=== PATIENT | female | born 1980 | race Caucasian/White ===

== ENCOUNTER 2018-11-28 18:19 | Inpatient (IN) ==
[2018-11-28 18:44] LABS: Bilirubin,Urine Small (Negative); Blood,Urine Moderate (Negative); Clarity,Urine Clear (Clear); Color,Urine Yellow (Yellow); Glucose,Urine (UA) Normal (Normal); Ketones,Urine Negative (Negative); Leukocyte Esterase,Urine Negative (Negative); Nitrite,Urine Negative (Negative); PH,Urine 6.5 pH Units (5.0-8.0); Protein,Urine Trace mg/dL (Neg-Trace)
--- NOTE | 2018-11-28 19:09 | Emergency Department Note ---
Disposition Clinical Impression: Multifocal pneumonia Disposition: Admitted As Inpatient Condition: Fair Time of Disposition: 22:11 General Adult HPI - General Chief complaint: ED Headache Stated complaint: HEADACHE, FEVER Time Seen by Provider: 11/28/18 19:07 Source: patient Mode of arrival: EMS Limitations: no limitations Nursing Notes Reviewed: Yes Vital Signs Reviewed: Yes - History of Present Illness HPI Narrative: Patient presents to the ED via EMS complaining of headache and fever. Headache started 3 days ago and fever started today. Patient states she was seen in the ED in [place] 3 days ago for chest pain. States they gave her nitroglycerin which triggered the headache and it has not gone away since then. Chest pain was resolved with nitroglycerin and she had a negative cardiac workup but states they wanted to keep her overnight for observation but she signed out AMA. Chest pain has never returned. Her headache is generalized in location, stabbing in nature and she rates it a 10 out of 10. She reports blurry vision over the past 2 days as well as some photophobia and phonophobia. No neck pain or stiffness. She does have a history of migraines but states today's pain was more intense and feels different. She denies any numbness, tingling or weakness in her arms or her legs although she feels generally weak. She reports nausea but no vomiting. No abdominal pain, diarrhea or constipation. No chest pain or shortness of breath. No urinary symptoms. No rash. No recent travel or sick contacts. Pain Scale: 10 - Related Data Home Medications Medication Instructions Recorded Confirmed Divalproex (12 HR) [Depakote (12 500 mg PO HS 11/28/18 11/28/18 HR)] Escitalopram [Lexapro] 20 mg PO DAILY 11/28/18 11/28/18 Fenofibrate 50 mg PO DAILY 11/28/18 11/28/18 Allergies Allergy/AdvReac Type Severity Reaction Status Date / Time No Known Allergies Allergy Verified 11/28/18 18:26 Constitutional: Reports: fever. Denies: chills, weakness, weight change Eyes: Denies: eye pain, eye discharge, vision change ENT ED: Denies: ear pain, throat pain, dental pain, hearing loss, epistaxis, congestion, dysphagia Cardiovascular: Denies: chest pain, palpitations, dyspnea on exertion, edema, syncope Respiratory: Denies: cough, dyspnea, wheezes, hemoptysis, stridor Gastrointestinal: Reports: nausea. Denies: abdominal pain, vomiting, diarrhea, constipation, hematemesis, melena, hematochezia Genitourinary: Denies: dysuria, frequency, hematuria, discharge Musculoskeletal: Reports: as per HPI Integumentary: Denies: rash, abrasion, lesions Neurological: Reports: headache. Denies: weakness, numbness, paresthesias, confusion, abnormal gait, vertigo Psychiatric: Denies: anxiety, depression, suicidal thoughts, homicidal thoughts, auditory hallucinations, visual hallucinations Endocrine: Denies: fatigue Hematological/Lymphatic: Denies: easy bleeding, easy bruising Allergic/Immunologic: Denies: facial swelling, urticaria Past Medical History - Past Medical History Medical history: Reports: other Psychiatric history: Reports: anxiety, depression - Social History Smoking Status: Current every day smoker Alcohol use: Reports: none Drug use: Reports: none Physical Exam - General Limitations: no limitations General appearance: alert, in no apparent distress - Head Head exam: atraumatic, normocephalic, normal inspection - Eye Eye exam: Present: normal appearance, PERRL, EOMI - ENT ENT exam: normal exam, normal oropharynx, mucous membranes moist - Neck Neck exam: Present: normal inspection, full ROM, trachea midline. Absent: meningismus - Chest Chest inspection: Present: normal inspection, symmetric chest wall rise - Respiratory Respiratory exam: Present: normal lung sounds bilaterally - Cardiovascular Cardiovascular exam: Present: regular rate, normal rhythm, normal heart sounds - Abdominal Exam Abdominal exam: Present: soft, Non-Tender. Absent: tenderness, distention, guarding, rebound, rigidity - Extremities Exam Extremities exam: Present: normal inspection, full ROM. Absent: tenderness, pedal edema - Back Exam Back exam: Present: normal inspection, full ROM. Absent: tenderness - Neurological Exam Neurological exam: Present: alert, oriented X3, CN II-XII intact. Absent: motor sensory deficit - Expanded Neurological Exam Speech: Present: fluid speech Cerebellar function: normal gait Motor strength - LUE: 5/5 Motor strength - RUE: 5/5 Motor strength - LLE: 5/5 Motor strength - RLE: 5/5 Coma Scale Eye Opening: Spontaneous Coma Scale Motor Response: Obeys Commands Coma Scale Verbal Response: Oriented Coma Scale Total: 15 - Psychiatric Psychiatric exam: Present: normal affect, normal mood - Skin Skin exam: Present: warm, dry, intact, normal color Course Course Narrative: Patient presents to the ED complaining of 3 days of headache with some migrainous features as well as a fever and generalized weakness. On arrival she is febrile at 103 and subtly tachycardia at 118. Physical exam is unremarkable including detailed neurologic exam. Given the change in nature of her headache will obtain CT scan of the head while also treating her with a migraine cocktail in obtaining lab work for further evaluation of the source of her fever. - Reevaluation(s) Reevaluation #1: Fever responded to Tylenol. Headache resolved with medication in the ED. Laboratory studies did show significant leukocytosis with left shift but lactic acid is normal. Head CT was normal as well but chest x-ray showed multifocal pneumonia. Discussed with patient recommendation for admission given the fever and high white count and she is agreeable. Will start IV antibiotics in the ED. I spoke to the hospitalist on-call, Dr. Drake, who has agreed to admit the p atient. Vital Signs Temperature 103.0 F H 11/28/18 18:21 Pulse Rate 118 11/28/18 18:21 Respiratory Rate 18 11/28/18 18:21 Blood Pressure 105/63 11/28/18 18:21 O2 Sat by Pulse Oximetry 95 11/28/18 18:21 Temperature 97.8 F 11/28/18 23:26 Pulse Rate 82 11/28/18 23:26 Respiratory Rate 16 11/28/18 23:26 Blood Pressure 102/66 11/28/18 23:26 O2 Sat by Pulse Oximetry 97 11/28/18 23:56 Oxygen Delivery Oxygen Delivery Room Air Medical Decision Making - Medical Records Medical records reviewed: Yes I reviewed the patient's medical records. - Lab Data Lab results reviewed: Yes I reviewed the patient's lab results. Result diagrams: 11/28/18 20:02 11/28/18 20:02 Lab Results 11/28/18 11/28/18 11/28/18 Range/Units 18:40 20:02 20:02 WBC 23.6 H (4.3-11.1) K/mcL RBC 3.55 L (3.82-4.97) M/mcL Hgb 10.9 L (11.5-15.4) g/dL Hct 32.3 L (35.3-44.9) % MCV 91.0 (83.0-100.0) fL MCH 30.7 (28.0-33.3) pg MCHC 33.7 (31.6-35.5) g/dL RDW 13.8 (11.5-14.5) % Plt Count 466 H (140-400) K/mcL MPV 9.0 L (9.4-12.4) fL Immature Gran % 0.8 (0-4) % Seg Neutrophils % 77.5 % Lymphocytes % 11.4 % Monocytes % 10.1 % Eosinophils % 0.0 % Basophils % 0.2 % Neutrophils # 18.3 H (1.6-8.9) K/mcL Lymphocytes # 2.7 (0.6-4.6) K/mcL Monocytes # 2.4 H (0.0-1.3) K/mcL Eosinophils # 0.0 (0.0-0.6) K/mcL Basophils # 0.1 (0.0-0.2) K/mcL Sodium 133 L (136-145) mEq/L Potassium 3.6 (3.5-5.1) mEq/L Chloride 102 (98-107) mEq/L Carbon Dioxide 20 L (23-29) mEq/L BUN 15 (6-20) mg/dL Creatinine 1.11 (0.60-1.20) mg/dL Est GFR ( Amer) > 60 (> 60) Est GFR (Non-Af Amer) 54 L (> 60) BUN/Creatinine Ratio 14 (6-26) Glucose 115 H (70-105) mg/dL Calculated Osmolality 278 L (280-300) Lactic Acid (0.5-2.2) mmol/L Calcium 8.9 (8.6-10.3) mg/dL Urine Color Yellow (Yellow) Urine Clarity Clear (Clear) Urine pH 6.5 (5.0-8.0) pH Units Ur Specific Patterson 1.020 (1.010-1.025) Urine Protein Trace (Neg-Trace) mg/dL Urine Glucose (UA) Normal (Normal) mg/dL Urine Ketones Negative (Negative) mg/dL Urine Blood Moderate H (Negative) Urine Nitrite Negative (Negative) Urine Bilirubin Small H (Negative) Urine Urobilinogen 4.0 H (Normal) mg/dL Ur Leukocyte Esterase Negative (Negative) Urine Microscopic RBC 5-15 H (0-3) per hpf Urine Microscopic WBC 0-3 (0-3) per hpf Ur Squamous Epith Cells Few (None-Few) per lpf Urine Bacteria Few (None-Few) per hpf Urine Mucus Few (Few) 11/28/18 Range/Units 20:02 WBC (4.3-11.1) K/mcL RBC (3.82-4.97) M/mcL Hgb (11.5-15.4) g/dL Hct (35.3-44.9) % MCV (83.0-100.0) fL MCH (28.0-33.3) pg MCHC (31.6-35.5) g/dL RDW (11.5-14.5) % Plt Count (140-400) K/mcL MPV (9.4-12.4) fL Immature Gran % (0-4) % Seg Neutrophils % % Lymphocytes % % Monocytes % % Eosinophils % % Basophils % % Neutrophils # (1.6-8.9) K/mcL Lymphocytes # (0.6-4.6) K/mcL Monocytes # (0.0-1.3) K/mcL Eosinophils # (0.0-0.6) K/mcL Basophils # (0.0-0.2) K/mcL Sodium (136-145) mEq/L Potassium (3.5-5.1) mEq/L Chloride (98-107) mEq/L Carbon Dioxide (23-29) mEq/L BUN (6-20) mg/dL Creatinine (0.60-1.20) mg/dL Est GFR ( Amer) (> 60) Est GFR (Non-Af Amer) (> 60) BUN/Creatinine Ratio (6-26) Glucose (70-105) mg/dL Calculated Osmolality (280-300) Lactic Acid 0.8 (0.5-2.2) mmol/L Calcium (8.6-10.3) mg/dL Urine Color (Yellow) Urine Clarity (Clear) Urine pH (5.0-8.0) pH Units Ur Specific Patterson (1.010-1.025) Urine Protein (Neg-Trace) mg/dL Urine Glucose (UA) (Normal) mg/dL Urine Ketones (Negative) mg/dL Urine Blood (Negative) Urine Nitrite (Negative) Urine Bilirubin (Negative) Urine Urobilinogen (Normal) mg/dL Ur Leukocyte Esterase (Negative) Urine Microscopic RBC (0-3) per hpf Urine Microscopic WBC (0-3) per hpf Ur Squamous Epith Cells (None-Few) per lpf Urine Bacteria (None-Few) per hpf Urine Mucus (Few) - Radiology Data Radiology results reviewed: Yes I reviewed the patient's radiology results. ITS Impressions Chest X-Ray 11/28/18 19:45 IMPRESSION: Multifocal consolidation, most compatible with multifocal pneumonia. It is essential that this be followed to resolution to ensure that there is no underlying neoplasm. D/ / Francesco Vera MD / Francesco Vera MD Interpreting Provider: Francesco Vera MD Head CT 11/28/18 19:45 IMPRESSION: No acute intracranial abnormality. D/ / Muriel Mohamud MD / Muriel Mohamud MD Interpreting Provider: Murile Mohamud MD
[2018-11-28 19:30] LABS: Bacteria,Urine Few per hpf (None-Few); Mucus,Urine Few (Few); Squamous Epithelial Cell,Urine Few per lpf (None-Few); WBC,Urine 0-3 per hpf (0-3)
[2018-11-28] MEDS ORDERED: *HR* Promethazine 25 MG/ML VIAL IVP ONE (19:44)
[2018-11-28] MEDS ORDERED: 0.9 % Sodium Chloride 500 ML IVC ONE (19:44)
[2018-11-28] MEDS ORDERED: Ketorolac 60 MG/2 ML VIAL IM ONE (19:44)
[2018-11-28 20:11] LABS: Basophils # 0.1 K/mcL (0.0-0.2); Basophils % 0.2 %; Hematocrit 32.3 % (35.3-44.9); Hemoglobin 10.9 g/dL (11.5-15.4); Immature Granulocytes % 0.8 % (0-4); Lymphocytes # 2.7 K/mcL (0.6-4.6); Lymphocytes % 11.4 %; Mean Corpuscular HGB Conc 33.7 g/dL (31.6-35.5); Mean Corpuscular Hemoglobin 30.7 pg (28.0-33.3); Monocytes # 2.4 K/mcL (0.0-1.3); Monocytes % 10.1 %; Neutrophils # 18.3 K/mcL (1.6-8.9); Platelet Count 466 K/mcL (140-400); Red Blood Count 3.55 M/mcL (3.82-4.97); Red Cell Distribution Width 13.8 % (11.5-14.5); Segmented Neutrophils % 77.5 %; White Blood Count 23.6 K/mcL (4.3-11.1)
[2018-11-28 20:25] LABS: BUN/Creatinine Ratio 14 (6-26); Blood Urea Nitrogen 15 mg/dL (6-20); Calcium 8.9 mg/dL (8.6-10.3); Carbon Dioxide 20 mEq/L (23-29); Chloride 102 mEq/L (98-107); Glucose 115 mg/dL (70-105); Osmolality,Calculated 278 (280-300); Potassium 3.6 mEq/L (3.5-5.1); Sodium 133 mEq/L (136-145); eGFR For African Americans > 60 (> 60); eGFR For Non-African Americans 54 (> 60)
[2018-11-28] MEDS ORDERED: levoFLOXacin 750 MG/150 ML 750 MG/150 ML BAG IVPB ONE (21:43)
[2018-11-28] MEDS ORDERED: Naloxone 0.4 MG/ML INJ IVP PRN ×2 (22:08→23:22)
[2018-11-29] MEDS ORDERED: Ondansetron 4 MG/2 ML VIAL IVP SCH (04:00)
[2018-11-29] MEDS: Ibuprofen 600 MG TABLET PO PRN ×2 (05:02→20:02)
[2018-11-29 06:03] LABS: Basophils # 0.1 K/mcL (0.0-0.2); Basophils % 0.5 %; Hematocrit 36.1 % (35.3-44.9); Hemoglobin 10.9 g/dL (11.5-15.4); Immature Granulocytes % 0.6 % (0-4); Lymphocytes # 1.9 K/mcL (0.6-4.6); Lymphocytes % 9.1 %; Mean Corpuscular HGB Conc 30.2 g/dL (31.6-35.5); Mean Corpuscular Hemoglobin 30.4 pg (28.0-33.3); Mean Corpuscular Volume 100.8 fL (83.0-100.0); Mean Platelet Volume 9.6 fL (9.4-12.4); Monocytes # 2.1 K/mcL (0.0-1.3); Monocytes % 9.9 %; Neutrophils # 16.8 K/mcL (1.6-8.9); Platelet Count 456 K/mcL (140-400); Red Blood Count 3.58 M/mcL (3.82-4.97); Red Cell Distribution Width 14.1 % (11.5-14.5); Segmented Neutrophils % 79.9 %
[2018-11-29] MEDS: traMADol 50 MG TABLET PO PRN ×2 (08:42→15:51)
[2018-11-29] MEDS: Fenofibrate 54 MG TABLET PO SCH (08:43)
--- NOTE | 2018-11-29 09:43 | Internal Med History&Physical ---
Date of Encounter: 11/29/18 Time of Encounter: 09:10 Assessment and Plan (1) Multifocal pneumonia Current visit: Yes Status: Acute She was given IV Levaquin in emergency room. She will be ordered IV Rocephin and Zithromax with lactobacillus. (2) Headache Current visit: Yes Status: Acute Tramadol and Ibuprofen have been ordered for prn use. Qualifiers: Headache type: unspecified Headache chronicity pattern: acute headache Intractability: intractable Qualified Code(s): R51 - Headache (3) Hypothyroidism Current visit: Yes Status: Chronic TSH will be ordered. Qualifiers: Hypothyroidism type: unspecified Qualified Code(s): E03.9 - Hypothyroidism, unspecified (4) Hyperlipidemia Current visit: Yes Status: Chronic Continue fenofibrate. Qualifiers: Hyperlipidemia type: unspecified Qualified Code(s): E78.5 - Hyperlipidemia, unspecified (5) Anemia Current visit: Yes Status: Acute Anemia testing will be ordered. Qualifiers: Anemia type: unspecified type Qualified Code(s): D64.9 - Anemia, unspecified (6) Azotemia Current visit: Yes Status: Acute Duration unknown. IV fluids will be given and renal indices will be monitored. (7) Thrombocytosis Current visit: Yes Status: Acute Duration unknown. Anemia testing will be done. (8) Hematuria Current visit: Yes Status: Acute Duration unknown. Urine culture will be ordered. Qualifiers: Hematuria type: unspecified type Qualified Code(s): R31.9 - Hematuria, unspecified Internal Medicine - H&P: HPI Chief complaint: Headache Admitted From: Emergency Dept Plans for Post Hospital Care: Home History of present illness: Ms. Kim is a 38 year old female who came to emergency room stating she had onset of headache November 26 after receiving a sublingual Nitrostat in [place] emergency room for complaints of chest pain. She reports the chest pain re solved but the headache has persisted. She denies vision changes neck stiffness cough dyspnea or vision loss. She came to emergency room and was found to have multifocal pneumonia, anemia, and azotemia on workup. She was admitted to [facility] floor for ongoing care needs. She reports history of migraine headaches since age 25 but states the present headache does not have her usual migraine characteristics. She denies strokes seizures or TIAs. Respiratory history is significant for having smoked since age 16 a total of 13 years. She reports never exceeding one half pack per day. She denies chronic lung disease and does not use home oxygen. She had negative NHI workup in the past. Past Med Surg Social Fam HX - Past Medical History Medical history: other Additional medical history: PITUTARY TUMOR. "RESTRICTED BLOOD FLOW TO HEART" Psychiatric history: anxiety, bipolar, depression - Past Surgical History Surgical History: cholecystectomy, hysterectomy - Social History Smoking Status: Current every day smoker Packs per day: 0.5 Smokeless Tobacco Status: No Alcohol use: none Drug use: none - Family History Mother Living Status: Age at : 42 Hx Family Cancer: Yes (cervical) Internal Medicine - H&P: Meds Divalproex (12 HR) [Depakote (12 HR)] 500 mg PO HS 11/28/18 [History] Escitalopram [Lexapro] 20 mg PO DAILY 11/28/18 [History] Fenofibrate 50 mg PO DAILY 11/28/18 [History] Allergy/AdvReac Type Severity Reaction Status Date / Time No Known Allergies Allergy Verified 11/28/18 18:26 All Systems PM: A 10-system review of systems was performed and is negative for pertinent findings except as documented above in the HPI. Review of systems: Gen.: She states her weight has been stable for several months Cardiovascular: She denies hypertension ND heart failure angina DVT or pulmonary embolus. She reports she had negative heart cath December 2017 at [facility]. She was placed on amlodipine for chest pain. She does not get angina or anginal equivalents on exertion. Respiratory: As per history of present illness GI: She has had cholecystectomy. She denies disorders of her liver or exocrine pancreas. : She denies hematuria dysuria or kidney stones Neurologic: As per history of present illness Endocrine: She has history of hypothyroidism and hyperlipidemia. She denies known internal malignancies. Hematology/oncology: She was unaware she had anemia on labs in emergency room. She denies history of anemia, blood disorders, or internal malignancies Psychiatric: She has anxiety and bipolar disorder [place] skeletal: She denies arthritis gout or other bone joint or muscle disorders. - Constitutional Vitals: Temp Pulse Resp BP Pulse Ox 99.5 F 91 18 99/66 96 11/29/18 06:45 11/29/18 06:45 11/29/18 06:45 11/29/18 06:45 11/29/18 06:45 Exam: Gen.: She is a well-developed well-nourished female resting comfortably in bed who appears in no acute distress HEENT: Head is atraumatic and normocephalic. There is mild discomfort on palpating the right temporal area. No enlarged arteries are palpated. Eyes: EOMI. There is no scleral icterus. Mouth: Mucosa is moist. Neck: Supple and nontender. There is no thyromegaly or adenopathy noted. Heart: Regular without murmurs gallops or ectopics Lungs: No wheezes or crackles are heard. Abdomen: Soft and nontender. No masses or guarding are noted. Extremities: There is no cyanosis edema or clubbing noted. Dorsalis pedis and posterior tibial pulses are 1-2 over 2 bilaterally. Neurologic: Mental status: She is talkative and a good historian. Cranial nerves: Smile is symmetric. Forehead wrinkles bilaterally. Tongue protrudes midline. EOMI. Motor: No focal motor deficits to gross exam. Skin: Warm and dry Internal Med - H&P Results - Labs CBC & Chem 7: 11/29/18 05:11 11/28/18 20:02 Labs: Short CBC 11/28/18 11/29/18 Range/Units 20:02 05:11 WBC 23.6 H 21.0 H (4.3-11.1) K/mcL Hgb 10.9 L 10.9 L (11.5-15.4) g/dL Hct 32.3 L 36.1 (35.3-44.9) % Plt Count 466 H 456 H (140-400) K/mcL Neutrophils # 18.3 H 16.8 H (1.6-8.9) K/mcL BMP 11/28/18 20:02 Sodium 133 L Potassium 3.6 Chloride 102 Carbon Dioxide 20 L BUN 15 Creatinine 1.11 Glucose 115 H Calcium 8.9 Urine 11/28/18 Range/Units 18:40 Urine Color Yellow (Yellow) Urine Clarity Clear (Clear) Urine pH 6.5 (5.0-8.0) pH Units Ur Specific [place] 1.020 (1.010-1.025) Urine Protein Trace (Neg-Trace) mg/dL Urine Glucose (UA) Normal (Normal) mg/dL - Impressions ITS Impressions Chest X-Ray 11/28/18 19:45 IMPRESSION: Multifocal consolidation, most compatible with multifocal pneumonia. It is essential that this be followed to resolution to ensure that there is no underlying neoplasm. D/ / Francesco Vera MD / Francesco Vera MD Interpreting Provider: Francesco Vera MD Head CT 11/28/18 19:45 IMPRESSION: No acute intracranial abnormality. D/ / Muriel Mohamud MD / Muriel Mohamud MD Interpreting Provider: Muriel Mohamud MD - VTE Reasons for not Prescribing Prophylaxis: Treatment not Indicated - Low risk for VTE
[2018-11-29 11:01] LABS: Thyroid Stimulating Hormone 3.654 mcIU/mL (0.340-5.600)
[2018-11-29] MEDS: cefTRIAXone 1,000 MG in Water for inj. (sterile) 10 ML IVP SCH (11:29)
[2018-11-29] MEDS: *HR* Enoxaparin 40 MG/0.4 ML SYRINGE SQ SCH (11:30)
[2018-11-29] MEDS: Azithromycin 500 MG in D5% in Water 250 ML IVPB SCH (11:30)
[2018-11-29] MEDS: 0.45 % Sodium Chloride w/KCl 20 MEQ/1,000 ML MLS IVC SCH (11:31)
[2018-11-29] MEDS: Ondansetron 4 MG/2 ML VIAL IVP PRN ×2 (12:25→15:52)
[2018-11-29] MEDS: Divalproex (12 HR) 250 MG TABLET PO SCH (20:03)
[2018-11-29] MEDS: Lactobacillus 1 EACH CAP.SPRINK PO SCH (20:03)
[2018-11-29 20:47] LABS: Iron < 10 mcg/dL (50-170); Transferrin 248 mg/dL (203-362)
[2018-11-29 20:52] LABS: Procalcitonin 0.27 ng/mL (0.00-0.15)
[2018-11-29 21:04] LABS: Ferritin 325 ng/mL (10-120)
[2018-11-29 21:09] LABS: Folate 10.5 ng/mL (3.0-16.0)
[2018-11-30] MEDS: 0.45 % Sodium Chloride w/KCl 20 MEQ/1,000 ML MLS IVC SCH ×2 (01:17→13:47)
[2018-11-30 06:23] LABS: Basophils % 0.4 %; Eosinophils # 0.2 K/mcL (0.0-0.6); Hematocrit 31.3 % (35.3-44.9); Hemoglobin 10.2 g/dL (11.5-15.4); Immature Granulocytes % 0.4 % (0-4); Lymphocytes # 3.2 K/mcL (0.6-4.6); Mean Corpuscular HGB Conc 32.6 g/dL (31.6-35.5); Mean Corpuscular Hemoglobin 30.4 pg (28.0-33.3); Mean Corpuscular Volume 93.4 fL (83.0-100.0); Mean Platelet Volume 9.9 fL (9.4-12.4); Monocytes # 1.2 K/mcL (0.0-1.3); Monocytes % 10.6 %; Neutrophils # 6.7 K/mcL (1.6-8.9); Platelet Count 424 K/mcL (140-400); Red Blood Count 3.35 M/mcL (3.82-4.97); Red Cell Distribution Width 13.9 % (11.5-14.5); Segmented Neutrophils % 58.6 %; White Blood Count 11.4 K/mcL (4.3-11.1)
[2018-11-30 06:27] LABS: Basophils # 0.1 K/mcL (0.0-0.2)
[2018-11-30 06:40] LABS: Alanine Aminotransferase 77 Units/L (7-52); Albumin 3.3 g/dL (3.5-5.7); Albumin/Globulin Ratio 1.3 (1.1-2.2); Alkaline Phosphatase 35 Units/L (34-104); Aspartate Amino Transferase 72 Units/L (13-39); BUN/Creatinine Ratio 17 (6-26); Bilirubin,Total 0.2 mg/dL (0.3-1.0); Blood Urea Nitrogen 18 mg/dL (6-20); Calcium 8.6 mg/dL (8.6-10.3); Carbon Dioxide 26 mEq/L (23-29); Chloride 108 mEq/L (98-107); Globulin 2.6 g/dL (2.4-3.5); Glucose 104 mg/dL (70-105); Osmolality,Calculated 290 (280-300); Potassium 4.1 mEq/L (3.5-5.1); Sodium 139 mEq/L (136-145); Total Protein 5.9 g/dL (6.4-8.9); eGFR For African Americans > 60 (> 60); eGFR For Non-African Americans 59 (> 60)
[2018-11-30] MEDS: *HR* Enoxaparin 40 MG/0.4 ML SYRINGE SQ SCH (06:42)
[2018-11-30] MEDS: traMADol 50 MG TABLET PO PRN (06:46)
[2018-11-30] MEDS: Fenofibrate 54 MG TABLET PO SCH (08:40)
[2018-11-30] MEDS: Lactobacillus 1 EACH CAP.SPRINK PO SCH ×2 (08:40→20:03)
--- NOTE | 2018-11-30 09:38 | Internal Med Progress Note ---
Date of Encounter: 11/30/18 Time of Encounter: 09:31 - Assessment and plan (1) Multifocal pneumonia Current Visit: Yes Status: Acute Assessment and plan: November 30. She has remained afebrile overnight. WBC has decreased to 11.4 with resolution of left shift. Pro-calcitonin slightly elevated at 0.27. Continue IV Rocephin and Zithromax with lactobacillus. (2) Headache Current Visit: Yes Status: Acute Assessment and plan: November 30. Continue tramadol and ibuprofen as needed. Qualifiers: Headache type: unspecified Headache chronicity pattern: acute headache Intractability: intractable Qualified Code(s): R51 - Headache (3) Hypothyroidism Current Visit: Yes Status: Chronic Assessment and plan: November 30. TSH was normal at 3.654. Qualifiers: Hypothyroidism type: unspecified Qualified Code(s): E03.9 - Hypothyroidism, unspecified (4) Hyperlipidemia Current Visit: Yes Status: Chronic Assessment and plan: November 30. Continue fenofibrate. Qualifiers: Hyperlipidemia type: unspecified Qualified Code(s): E78.5 - Hyperlipidemia, unspecified (5) Anemia Current Visit: Yes Status: Acute Assessment and plan: November 30. Hemoglobin slightly decreased to 10.2. Anemia testing showed iron < 10, transferrin 248, ferritin 325, B12 245, and folate 10.5. She will receive a B12 injection and start oral B12 supplement. She will also start ferrous sulfate with ascorbic acid. Qualifiers: Anemia type: unspecified type Qualified Code(s): D64.9 - Anemia, unspec ified (6) Azotemia Current Visit: Yes Status: Acute Assessment and plan: November 30. BUN and creatinine 18 and 1.03 respectively today with estimated GFR 59. Continue IV fluids. Recheck labs in a.m. (7) Thrombocytosis Current Visit: Yes Status: Acute Assessment and plan: November 30. Minimally changed at 424,000. Start ferrous sulfate in a.m. (8) Hematuria Current Visit: Yes Status: Acute Assessment and plan: November 30. Urine culture report pending. Qualifiers: Hematuria type: unspecified type Qualified Code(s): R31.9 - Hematuria, unspecified (9) Elevated transaminase level Current Visit: Yes Status: Acute Assessment and plan: November 30. AST and ALT are 72 and 77 respectively. Alkaline phosphatase normal at 35. Recheck labs in a.m. - Subjective Interval history: November 30. She has no new complaints and feels better. - Constitutional Vitals: Temp Pulse Resp BP Pulse Ox 97.7 F 73 14 108/73 97 11/30/18 06:51 11/30/18 06:51 11/30/18 07:57 11/30/18 06:51 11/30/18 07:57 Exam: She is resting comfortably in bed and appears in no acute distress. Her affect is bright and cheerful. She appears in less pain than yesterday. I reviewed her medications and lab results. Internal Medicine: Result - Labs CBC & Chem 7: 11/30/18 06:00 11/30/18 06:00 Labs: Short CBC 11/30/18 Range/Units 06:00 WBC 11.4 H (4.3-11.1) K/mcL Hgb 10.2 L (11.5-15.4) g/dL Hct 31.3 L (35.3-44.9) % Plt Count 424 H (140-400) K/mcL Neutrophils # 6.7 (1.6-8.9) K/mcL BMP 11/30/18 06:00 Sodium 139 Potassium 4.1 Chloride 108 H Carbon Dioxide 26 BUN 18 Creatinine 1.03 Glucose 104 Calcium 8.6 Liver Function 11/30/18 Range/Units 06:00 Total Bilirubin 0.2 L (0.3-1.0) mg/dL AST 72 H (13-39) Units/L ALT 77 H (7-52) Units/L Alkaline Phosphatase 35 (34-104) Units/L Albumin 3.3 L (3.5-5.7) g/dL - VTE Reasons for not Prescribing Prophylaxis: Treatment not Indicated - Low risk for VTE Consult Discharge Plan - Plan Referrals: Linette Rose MD [Primary Care Provider] - 1 week
[2018-11-30] MEDS ORDERED: Cyanocobalamin (B-12) 1,000 MCG/ML VIAL IM ONE (09:44)
[2018-11-30] MEDS: cefTRIAXone 1,000 MG in Water for inj. (sterile) 10 ML IVP SCH (10:18)
[2018-11-30] MEDS: Azithromycin 500 MG in D5% in Water 250 ML IVPB SCH (10:20)
[2018-11-30] MEDS: Ibuprofen 600 MG TABLET PO PRN ×2 (10:33→20:05)
[2018-11-30] MEDS: Divalproex (12 HR) 250 MG TABLET PO SCH (20:03)
[2018-12-01 00:10] LABS: Bilirubin,Urine Negative (Negative); Blood,Urine Moderate (Negative); Clarity,Urine Clear (Clear); Color,Urine Yellow (Yellow); Glucose,Urine (UA) Normal (Normal); Ketones,Urine Negative (Negative); Leukocyte Esterase,Urine Negative (Negative); Nitrite,Urine Negative (Negative); Protein,Urine Negative (Neg-Trace); Urobilinogen,Urine Normal (Normal)
[2018-12-01 00:26] LABS: Bacteria,Urine Few per hpf (None-Few); RBC,Urine 15-30 per hpf (0-3); Squamous Epithelial Cell,Urine Many per lpf (None-Few); WBC,Urine 0-3 per hpf (0-3)
[2018-12-01] MEDS: Ibuprofen 600 MG TABLET PO PRN (02:12)
[2018-12-01] MEDS ORDERED: Mag Hydrox/Al Hydrox/Simeth 30 ML UDC PO PRN (02:17)
[2018-12-01] MEDS: 0.45 % Sodium Chloride w/KCl 20 MEQ/1,000 ML MLS IVC SCH (03:25)
[2018-12-01 05:23] LABS: Basophils % 0.4 %; Eosinophils # 0.3 K/mcL (0.0-0.6); Eosinophils % 2.2 %; Hematocrit 28.6 % (35.3-44.9); Hemoglobin 9.4 g/dL (11.5-15.4); Immature Granulocytes % 0.4 % (0-4); Lymphocytes # 3.3 K/mcL (0.6-4.6); Lymphocytes % 29.4 %; Mean Corpuscular HGB Conc 32.9 g/dL (31.6-35.5); Mean Corpuscular Volume 91.4 fL (83.0-100.0); Monocytes # 1.2 K/mcL (0.0-1.3); Monocytes % 10.3 %; Neutrophils # 6.4 K/mcL (1.6-8.9); Platelet Count 477 K/mcL (140-400); Red Blood Count 3.13 M/mcL (3.82-4.97); Red Cell Distribution Width 13.6 % (11.5-14.5); Segmented Neutrophils % 57.3 %; White Blood Count 11.2 K/mcL (4.3-11.1)
[2018-12-01 05:41] LABS: Alanine Aminotransferase 127 Units/L (7-52); Albumin 3.1 g/dL (3.5-5.7); Albumin/Globulin Ratio 1.2 (1.1-2.2); Alkaline Phosphatase 47 Units/L (34-104); Aspartate Amino Transferase 98 Units/L (13-39); BUN/Creatinine Ratio 13 (6-26); Bilirubin,Total 0.2 mg/dL (0.3-1.0); Blood Urea Nitrogen 10 mg/dL (6-20); Calcium 8.1 mg/dL (8.6-10.3); Carbon Dioxide 27 mEq/L (23-29); Chloride 105 mEq/L (98-107); Globulin 2.5 g/dL (2.4-3.5); Glucose 93 mg/dL (70-105); Osmolality,Calculated 285 (280-300); Potassium 4.2 mEq/L (3.5-5.1); Sodium 138 mEq/L (136-145); Total Protein 5.6 g/dL (6.4-8.9); eGFR For African Americans > 60 (> 60); eGFR For Non-African Americans > 60 (> 60)
[2018-12-01] MEDS: *HR* Enoxaparin 40 MG/0.4 ML SYRINGE SQ SCH (06:19)
[2018-12-01] MEDS ORDERED: Ascorbic Acid 500 MG TABLET PO SCH (06:30)
[2018-12-01 07:00] VITALS: BP 89/55
[2018-12-01] MEDS ORDERED: Cyanocobalamin (B-12) 1,000 MCG TABLET PO SCH (09:00)
[2018-12-01] MEDS: Azithromycin 500 MG in D5% in Water 250 ML IVPB SCH (09:20)
[2018-12-01] MEDS: Fenofibrate 54 MG TABLET PO SCH (09:20)
[2018-12-01] MEDS: Lactobacillus 1 EACH CAP.SPRINK PO SCH (09:20)
[2018-12-01] MEDS: cefTRIAXone 1,000 MG in Water for inj. (sterile) 10 ML IVP SCH (09:21)
--- NOTE | 2018-12-01 09:55 | Discharge Summary ---
Orders not resulted at time of discharge: Pending orders 11/28/18 22:03 Culture,Blood [BC] Stat 12/01/18 00:00 Culture,Urine [RM] Routine Date of Encounter: 12/01/18 Time of Encounter: 09:44 - Discharge Diagnosis (1) Multifocal pneumonia Priority: Primary Status: Acute (2) Headache Priority: Secondary Status: Acute Qualifiers: Headache type: unspecified Headache chronicity pattern: acute headache Intractability: intractable Qualified Code(s): R51 - Headache (3) Hypothyroidism Priority: Secondary Status: Chronic Qualifiers: Hypothyroidism type: unspecified Qualified Code(s): E03.9 - Hypothyroidism, unspecified (4) Hyperlipidemia Priority: Secondary Status: Chronic Qualifiers: Hyperlipidemia type: unspecified Qualified Code(s): E78.5 - Hyperlipidemia, unspecified (5) Anemia Priority: Secondary Status: Acute Qualifiers: Anemia type: unspecified type Qualified Code(s): D64.9 - Anemia, unspecified (6) Azotemia Priority: Secondary Status: Resolved (7) Thrombocytosis Priority: Secondary Status: Acute (8) Hematuria Priority: Secondary Status: Acute Qualifiers: Hematuria type: unspecified type Qualified Code(s): R31.9 - Hematuria, unspecified (9) Elevated transaminase level Priority: Secondary Status: Acute Hospital course: Ms. Kim is a 38 year old female who came to emergency room stating she had onset of headache November 26 after receiving a sublingual Nitrostat in [place] emergency room for complaints of chest pain. She reports the chest pain resolved but the headache has persisted. She denies vision changes neck stiffness cough dyspnea or vision loss. She came to emergency room and was found to have multifocal pneumonia, anemia, and azotemia on workup. She was admitted to [facility] for ongoing care needs. Initial orders were written by the emergency room physician. I saw her on November 29 and performed a history and physical. She was given IV Rocephin and Zithromax with lactobacillus. She had good clinical response and remained afebrile after the first 24 hours. WBC decreased to 11.2 with resolution of left shift. She will continue with antibiotic and probiotic for 3 additional days at discharge. Hemoglobin decreased to 9.4 with administration of IV fluids. Anemia testing showed iron < 10, transferrin 248, ferritin 325, B12 245, and folate 10.5. She was given a B12 injection IM and started on oral B12 supplement. She was started on ferrous sulfate with ascorbic acid orally. Her PCP can monitor. Transaminase levels remained elevated during hospitalization. This may be related to viral infection. Her PCP can monitor. Repeat UA showed persistent hematuria. Her PCP can do further workup if hematuria persists. BUN and creatinine improved to 10 and 0.77 respectively with estimated GFR> 60 by day of discharge. She complained of ongoing headache and was given ibuprofen with improvement. There were no meningeal signs on neck flexion. She will be given ibuprofen for prn use at discharge. On December 01 she felt improved and stable for discharge home. She will follow with her PCP Dr. Rose within 1 week. Room air oximetry be checked on 6 minute walk prior to discharge. - Time Spent with Patient Total time spent providing and/or coordinating discharge services: - Discharge Medications Prescriptions: New Cefuroxime PO [Ceftin] 500 mg PO Q12HR #6 tablet Lactobacillus [Culturelle] 1 each PO BID #6 cap.sprink Ferrous Sulfate 325 mg PO 0630 #30 tablet Ibuprofen [Motrin] 600 mg PO Q6HR PRN #12 tablet PRN Reason: Mild To Moderate Pain Cyanocobalamin (B-12) [Vitamin B12] 1,000 mcg PO DAILY #30 tablet Ascorbic Acid [Vitamin C] 500 mg PO 0630 #30 tablet Azithromycin [Zithromax] 250 mg PO DAILY #3 tablet Continued Divalproex (12 HR) [Depakote (12 HR)] 500 mg PO HS Escitalopram [Lexapro] 20 mg PO DAILY Fenofibrate 50 mg PO DAILY Home Medications: Divalproex (12 HR) [Depakote (12 HR)] 500 mg PO HS 11/28/18 [History] Escitalopram [Lexapro] 20 mg PO DAILY 11/28/18 [History] Fenofibrate 50 mg PO DAILY 11/28/18 [History] Ascorbic Acid [Vitamin C] 500 mg PO 0630 #30 tablet 12/01/18 [Rx] Azithromycin [Zithromax] 250 mg PO DAILY #3 tablet 12/01/18 [Rx] Cefuroxime PO [Ceftin] 500 mg PO Q12HR #6 tablet 12/01/18 [Rx] Cyanocobalamin (B-12) [Vitamin B12] 1,000 mcg PO DAILY #30 tablet 12/01/18 [Rx] Ferrous Sulfate 325 mg PO 0630 #30 tablet 12/01/18 [Rx] Ibuprofen [Motrin] 600 mg PO Q6HR PRN #12 tablet 12/01/18 [Rx] Lactobacillus [Culturelle] 1 each PO BID #6 cap.sprink 12/01/18 [Rx] Allergies/Adverse Reactions: Allergy/AdvReac Type Severity Reaction Status Date / Time No Known Allergies Allergy Verified 11/28/18 18:26 Date of admission: 11/29/18 10:02 Primary care physician: Linette Rose MD - Constitutional Vitals: Temp Pulse Resp BP Pulse Ox 98.7 F 75 20 89/55 96 12/01/18 06:55 12/01/18 06:55 12/01/18 06:55 12/01/18 06:55 12/01/18 06:55 - Patient Status Disposition: Home, Self-Care Condition: Fair - Discharge Instructions Follow Up With: Linette Rose MD [Primary Care Provider] - 1 week - Diet and Activity Activity: resume usual activities as tolerated Diet: advance to your usual diet - VTE Reasons for not Prescribing Prophylaxis: Treatment not Indicated - Low risk for VTE
== END 2018-12-01 11:01 | disposition home or self-care (01) | DRG 139 ==
LOC: INPPIK 18:19 → EMEROOPIK 18:19 → INPPIK 22:45
PROVIDERS: ADMIT Internal Medicine; ATTEND Internal Medicine